=== PATIENT | female | born 1990 | race African-American/Black ===

== ENCOUNTER 2016-11-16 11:03 | Emergency (ER) | payer MEDICAID ==
[~2016-11-16 11:03] MED LIST: BIRTH CONTROL; ONDA4TAB7 PO; POTA10TA11 PO
[2016-11-19 09:12] LABS: ASPARTATE AMINO TRANSFERASE 19 U/L (15-37); BLOOD UREA NITROGEN 13 mg/dL (7-18)
[2016-11-19 14:02] LABS: HCG UR OBC PASS
== END 2016-11-16 13:15 | disposition home or self-care (01) ==
LOC: ED 11:03
DX: R19.7 Diarrhea, unspecified (principal); R11.2 Nausea with vomiting, unspecified
CPT/HCPCS: 36415; 74022; 80048; 80076; 81001; 81025; 82040; 83690; 85025; 87086